=== PATIENT | female | born 1995 | race Caucasian/White ===

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

== ENCOUNTER 2018-11-15 23:41 | Outpatient (CLI) | payer BC ==
[~2018-11-15] VITALS: Ht 167.6 cm; Wt 80.5 kg
[~2018-11-15 23:41] MED LIST changes: +PRENATAL PO
--- NOTE | 2018-11-15 23:50 | NUR ---
PT ARRIVED TO UNIT AMBULATORY WITH COMPLAINTS OF CONTRACTIONS, FOB WITH PT. PT ORIENTED TO ROOM, CHANGED INTO GOWN. EFMX2, VS OBTAINED, SVE PERFORMED.
[2018-11-15] MEDS ORDERED: IRON 27 MG PO (23:59)
[2018-11-16 00:01] VITALS: BP 123/84; PULSE 75; TEMP 98
[2018-11-16 00:30] VITALS: BP 123/84; PULSE 75; TEMP 98
--- NOTE | 2018-11-16 01:50 | NUR ---
0124- PT MAY DC HOME AT THIS TIME PER DR. ZEPEDA. 0132- MONITORING DC'D AT THIS TIME. PT CHANGING INTO STREET [employer]OTHES WHILE DISCHARGE PAPERWORK PREPARED. 0150- DISCHARGE INSTRUCTIONS REVIEWED WITH PT AND FAMILY. PT INSTRUCTED SHE MAY TAKE 1000MG TYLENOL AND 50MG OF BENADRYL FOR DISCOMFORT AND SLEEP. INSTRUCTED ON WHEN TO RETURN TO THE UNIT. UNDERSTANDING VERBALIZED BY PT AND FAMILY. PT LEFT THE UNIT AMBULATORY WITH FAMILY FOR HOME.
== END 2018-11-16 01:50 | disposition home or self-care (01) ==
LOC: LDRO 23:41
DX: O62.9 Abnormality of forces of labor, unspecified (principal); Z3A.33 33 weeks gestation of pregnancy

== ENCOUNTER 2018-12-09 21:02 | Outpatient (CLI) | payer BC ==
[~2018-12-09] VITALS: Ht 165.1 cm; Wt 84.5 kg
[~2018-12-09 21:02] MED LIST changes: +IRON 27 MG PO
[2018-12-09 21:20] VITALS: TEMP 98.1
[2018-12-09 21:27] VITALS: BP 136/79; PULSE 72; TEMP 98.1
--- NOTE | 2018-12-09 21:32 | NUR ---
LABOAR CHECK. PAST 2 JHOURS INCRESING ABD PAIN
== END 2018-12-09 23:00 | disposition home or self-care (01) ==
LOC: LDRO 21:02
DX: Z34.93 Encounter for supervision of normal pregnancy, unspecified, third trimester (principal); Z3A.36 36 weeks gestation of pregnancy

== ENCOUNTER 2018-12-14 15:10 | Outpatient (CLI) | payer BC ==
[~2018-12-14] VITALS: Ht 165.1 cm; Wt 83.2 kg
--- NOTE | 2018-12-14 15:17 | NUR ---
1517-G1 [address] VELEZ AMBULATORY TO LR5 WITH COMPLAINTS OF CONTRACTIONS SINCE MONDAY. REPORTS SHE WAS SEEN IN THE OFFICE THIS WEEK FOLLOWING LABOR CHECK AND CERVIX WAS STILL 1CM THEN TOO. ASSISTED INTO GOWN AND PLACED ON EFM. REAVTIVE FHR, VSS. 1530-SVE , BOWI. UPDATED ON PLAN OF CARE. ASSESSMENT COMPLETE. 1630-SVE UNCHAGED, , UPDATED DR. DUKE. ORDERS TO DISCHARGE PATIENT HOME WITH INSTRUCTIONS. 1631-PATIENT OFF EFM. UPDATED ON DISCHARGE ORDER. 1644-REVIEWED DISCHARGE INSTRUCTIONS. PATIENT DENIES QUESTIONS. ENCOURAGED PATIENT TO CONTINUE TO DRINK PLENTY OF WATER AND TAKE TYLENOL FOR DISCOMFORTS PRN DIRECTED ON BOTTLE, ALSO SUGGESTED PATIENT TAKE WARM BATH. 1645-AMBULATORY OFF UNIT WITH SIGNIFICANT OTHER.
[2018-12-14 15:33] VITALS: BP 124/85; PULSE 69; TEMP 97.9
[2018-12-14 15:45] VITALS: BP 124/85; PULSE 69; TEMP 97.9
== END 2018-12-14 16:45 | disposition home or self-care (01) ==
LOC: LDRO 15:10 → LDR 16:30 → LDRO 16:45
DX: O62.9 Abnormality of forces of labor, unspecified (principal); O99.89 Other specified diseases and conditions complicating pregnancy, childbirth and the puerperium; F32.9 Major depressive disorder, single episode, unspecified; Z3A.37 37 weeks gestation of pregnancy
CPT/HCPCS: OP

== ENCOUNTER 2018-12-31 06:35 | Inpatient (IN) | payer BC ==
[~2018-12-31] VITALS: Ht 165.1 cm; Wt 85.9 kg
[2018-12-31] VITALS (54 sets, daily range): BP systolic 98–159; BP diastolic 57–97; PULSE 64–110; TEMP 97.5–98.1
[2018-12-31 07:58] LABS: BASO % 0.1 % (0.0-2.0); EOS % 0.4 % (0-4.0); GRAN # 4.7 (1.4-6.5); GRAN % 61.6 % (42.2-75.2); LYMPH # 2.4 (1.2-3.4); LYMPH % 30.9 % (20.0-51.0); MEAN CELL VOLUME 83 fl (80.0-100.0); MEAN CORPUSCULAR HEMOGLOBIN 27 pg (27.0-31.0); MEAN CORPUSCULAR HGB CONC 33 g/dl (33.0-37.0); MEAN PLATELET VOLUME 12.5 fl (7.4-10.4); MONO # 0.5 (0.1-0.6); MONO % 6.7 % (1.7-9.3); PLATELET COUNT 122 K/mm3 (130-400); RED BLOOD COUNT 4.39 M/mm3 (4.10-5.30); REDCELL DISTRIBUTION WIDTH-CV 14.4 % (11.5-14.5)
--- NOTE | 2018-12-31 08:00 | NUR ---
0720 PATIENT HERE FOR INDUCTION OF LABOR. EFM ON FHR 114 BABY VERY ACTIVE AND ACCELERATIONS NOTED. ASSESSMENT COMPLETED. DENIES NEEDS. IV STARTED IN LEFT HAND. DR DUKE AT BEDSIDE. FLORES MACIAS WITH AMNIOHOOK. . PATIENT TOLERATED WELL
[2018-12-31 08:01] LABS: HEMATOCRIT 36.5 % (37.0-47.0)
--- NOTE | 2018-12-31 13:14 | NUR ---
1300 PATIENT SITS UP ON EDGE OF BED FOR EPIDURAL PLACEMENT. JOSE BERGMAN CRNA AT BEDSIDE. PATIENT TOLERATE PLACEMENT WELL. DENIES NEEDS. SEE JOSE JOWL TRIMMER NOTES FOR QUESTIONS IF NEEDED.
--- NOTE | 2018-12-31 17:56 | NUR ---
1800 DR DUKE CALLED AND UPDATED NO NEW ORDERS AT THIS TIME
--- NOTE | 2018-12-31 19:34 | NUR ---
192- Dr. Donato at bedside at this time. Patient in left lateral, O2 10L, fluid bolus at this time due to prolonged deceleration. Dr. Donato- SVE 10cm at this time. Practice push initiated, patient educated on pushing, patient verbalized understanding. 193- Spontaneous delivery of male infant at this time, with successful vaccum assist- with one pop-off. 1935- Spontaneous delivery of intact placenta, pitocin rapidly infusing. 1936- First degree laceration repaired by Dr. Donato. EBL 200cc per provider. No further complications, apgars 8,9,9 per nursery nurse. Cord PH obtained and sent to lab.
[2019-01-01 01:37] VITALS: BP 132/82; PULSE 76
[2019-01-01 05:13] VITALS: BP 123/83; PULSE 65
[2019-01-01 07:15] VITALS: BP 142/89; PULSE 63; TEMP 98.4
--- NOTE | 2019-01-01 09:57 | NUR ---
INT removed,Left hand,no redness or swelling at site. Pt tolerated removal well.
--- NOTE | 2019-01-01 10:07 | NUR ---
Initial visit attempt: Family resting, Cvt Tech left card of congratulations and God's blessings for the of their son and information regarding the availability of spiritual care at [facility].
[2019-01-01 16:00] VITALS: BP 122/83; PULSE 76; TEMP 98.1
[2019-01-01 19:55] VITALS: BP 114/69; PULSE 71; TEMP 97.9
[2019-01-02] MEDS ORDERED: MOTRIN 800800 MG/TAB PO (08:31)
[2019-01-02 08:43] VITALS: BP 123/79; PULSE 91; TEMP 98.3
--- NOTE | 2019-01-02 09:56 | NUR ---
Initial visit; Parents thanked Personal Carer for offering congratulations and God's blessings for the of their son. Personal Carer thanked family for choosing our hospital.
== END 2019-01-02 11:00 | disposition home or self-care (01) | DRG 807 ==
LOC: LDR 06:35 → OB 22:45
PROVIDERS: ADMIT Obstetrics & Gynecology
PROC: 10D07Z6 Extraction of Products of Conception, Vacuum, Via Natural or Artificial Opening (ICD-10-PCS; principal; 2018-12-31)
PROC: 0UQGXZZ Repair Vagina, External Approach (ICD-10-PCS; 2018-12-31)
PROC: 10907ZC Drainage of Amniotic Fluid, Therapeutic from Products of Conception, Via Natural or Artificial Opening (ICD-10-PCS; 2018-12-31)
PROC: 3E033VJ Introduction of Other Hormone into Peripheral Vein, Percutaneous Approach (ICD-10-PCS; 2018-12-31)
DX: O99.02 Anemia complicating childbirth (principal); Z37.0 Single live birth; O99.344 Other mental disorders complicating childbirth; F32.9 Major depressive disorder, single episode, unspecified; F41.9 Anxiety disorder, unspecified; O70.0 First degree perineal laceration during delivery; O76 Abnormality in fetal heart rate and rhythm complicating labor and delivery; O69.1XX0 Labor and delivery complicated by cord around neck, with compression, not applicable or unspecified; Z3A.39 39 weeks gestation of pregnancy; Z23 Encounter for immunization
CPT/HCPCS: J2590; J7120

== ENCOUNTER 2020-02-14 19:02 | Outpatient (CLI) | payer BC ==
[~2020-02-14] VITALS: Ht 165.1 cm; Wt 84.5 kg
--- NOTE | 2020-02-14 18:40 | NUR ---
Pt arrived on unit ambulatory escorted by boyfriend and with complaints of contractions and decreased movement. Pt denies any leaking of fluid or vaginal bleeding. Pt reports contractions "every couple minutes" since 2pm and normal movement prior to contractions starting. EFM and toco monitor started. Vital signs WNL. SVE by this RN . Spoke with Dr. Marroquin. FHR tracing, ctx pattern and SVE reviewed. Orders for labor assessment received. Plan of care reviewed with pt and boyfriend. Both verbalized an understanding.
[~2020-02-14 19:02] MED LIST changes: +MOTRIN 800800 MG/TAB PO
[2020-02-14 19:05] VITALS: BP 108/77; PULSE 82; TEMP 98.4
[2020-02-14] MEDS ORDERED: PROZAC 10MG10 MG PO (19:12)
--- NOTE | 2020-02-14 19:45 | NUR ---
SVE by this RN with no change. Spoke with Dr. Marroquin for an update on pt's status. SVE and FHR tracing reviewed. Orders for discharge home received. Plan of care reviewed with pt and boyfriend. Both verbalized an understanding, agreed with the plan and state no questions or concerns at this time.
== END 2020-02-14 19:57 | disposition home or self-care (01) ==
LOC: LDRO 19:02
DX: O36.8130 Decreased fetal movements, third trimester, not applicable or unspecified (principal); Z3A.37 37 weeks gestation of pregnancy

== ENCOUNTER 2020-02-15 16:47 | Inpatient (IN) | payer MEDICAID ==
[~2020-02-15] VITALS: Ht 165.1 cm; Wt 84.5 kg
[2020-02-15] VITALS (15 sets, daily range): BP systolic 102–132; BP diastolic 62–83; PULSE 58–82; TEMP 97.8–98.3
--- NOTE | 2020-02-15 16:44 | NUR ---
pt here to unit from ER and to LDR 5 with c/o contractions every 2-3 minutes. Pt was here last evening as a labor check. Pt states ctx slowed but around 1400 this afternoon they picked back up. 37.4 weeks gestation, G2L1. Pt to [facility], explained. SVE: -2, bag of santos palpated during exam. Asessment complete. VSS. Pt states baby is active and FHR reactive. Dr Marroquin called at 1703 and updated. Will monitor for 1 hour and recheck cervix.
[~2020-02-15 16:47] MED LIST changes: +PROZAC 10MG10 MG PO
--- NOTE | 2020-02-15 18:30 | NUR ---
Pt off EFM to ambulate and use birthing ball.
--- NOTE | 2020-02-15 19:30 | NUR ---
Spoke with Dr. Marroquin for an update on pt's status. FHR tracing, ctx pattern and SVE by this RN reviewed. Orders for labor admission received. Plan of care reviewed with pt and significant other at the bedside.
--- NOTE | 2020-02-15 20:17 | NUR ---
2017- Tonja Ríos CRNA at the bedside for epidural placement. Pt sitting on the edge of the bed. SPO2 monitor started. Time out done. 2032- Single shot done per MIKE Wallace. See anesthesia records for details. 2038- Assisted pt back to supine with left wedge position. EFM and toco monitors adjusted.
[2020-02-15 20:27] LABS: BASO % 0.2 % (0.0-2.0); EOS # 0.1 (0.0-0.7); EOS % 0.6 % (0-4.0); GRAN # 7.5 (1.4-6.5); GRAN % 74.3 % (42.2-75.2); HEMATOCRIT 33.5 % (37.0-47.0); HEMOGLOBIN 11.1 g/dl (12.5-16.0); LYMPH # 1.9 (1.2-3.4); LYMPH % 18.9 % (20.0-51.0); MEAN CELL VOLUME 85 fl (80.0-100.0); MEAN CORPUSCULAR HEMOGLOBIN 28 pg (27.0-31.0); MEAN CORPUSCULAR HGB CONC 33 g/dl (33.0-37.0); MEAN PLATELET VOLUME 10.8 fl (7.4-10.4); MONO # 0.6 (0.1-0.6); MONO % 5.6 % (1.7-9.3); PLATELET COUNT 125 K/mm3 (130-400); RED BLOOD COUNT 3.96 M/mm3 (4.10-5.30); REDCELL DISTRIBUTION WIDTH-CV 13.4 % (11.5-14.5)
[2020-02-16] VITALS (18 sets, daily range): BP systolic 104–136; BP diastolic 59–84; PULSE 51–99; TEMP 97.8–98.2
--- NOTE | 2020-02-16 01:38 | NUR ---
0125- Pt reports feeling pressure. SVE by this RN /+2. 0127- Spoke with Dr. Marroquin for an update on pt's status. Dr. Marroquin in hospital and to unit for delivery. 0130- Dr. Marroquin at the bedside. Medina removed without complications. 0134- Pt set up for delivery. 0137- Pushing started. 0138- of viable female . placed on mom's abdomen. Cords clamped and cut. Care of the given to nursery RN at the bedside. 0141- of placenta. Moderate amount of lochia. Fundus firm per Dr. Marroquin. Pitocin started at 333ml/hr per order and protocol. 0143- Straight cath done per Dr. Marroquin. 0145- Methergine IM given. See EMAR for details.
--- NOTE | 2020-02-16 05:10 | NUR ---
Pt unable to ambulate to bathroom. Sofia-care done. Assisted pt to wheelchair for transfer to room 216. Oriented to room, bed and call light within reach. Plan of care reviewed with pt.
[2020-02-17] MEDS ORDERED: MOTRIN 600600 MG/TAB PO (07:09)
[2020-02-17 08:05] VITALS: BP 102/67; PULSE 70; TEMP 97.7
--- NOTE | 2020-02-17 13:15 | NUR ---
Patient given dc instructions. Denies questions.
== END 2020-02-17 13:25 | disposition home or self-care (01) | DRG 807 ==
LOC: LDRO 16:47 → LDR 16:48 → LDRO 19:34 → OB 19:35 → LDR 19:35 → OB 02-16 05:17
PROVIDERS: ADMIT Obstetrics & Gynecology
PROC: 10E0XZZ Delivery of Products of Conception, External Approach (ICD-10-PCS; principal; 2020-02-16)
DX: O80 Encounter for full-term uncomplicated delivery (principal); Z37.0 Single live birth; Z3A.37 37 weeks gestation of pregnancy
CPT/HCPCS: J2210; J2590; J2795; J7120

== ENCOUNTER 2020-02-19 12:31 | Emergency (ER) | payer MEDICAID ==
[~2020-02-19] VITALS: Ht 165.1 cm; Wt 81.8 kg
[~2020-02-19 12:31] MED LIST changes: +MOTRIN 600600 MG/TAB PO
[2020-02-19 12:41] VITALS: TEMP 98.6
[2020-02-19 12:50] LABS: BASO % 0.1 % (0.0-2.0); EOS # 0.1 (0.0-0.7); EOS % 1.2 % (0-4.0); GRAN # 4.7 (1.4-6.5); GRAN % 67.9 % (42.2-75.2); HEMOGLOBIN 10.4 g/dl (12.5-16.0); LYMPH # 1.7 (1.2-3.4); LYMPH % 25.4 % (20.0-51.0); MEAN CELL VOLUME 87 fl (80.0-100.0); MEAN CORPUSCULAR HEMOGLOBIN 28 pg (27.0-31.0); MEAN CORPUSCULAR HGB CONC 33 g/dl (33.0-37.0); MEAN PLATELET VOLUME 10.6 fl (7.4-10.4); MONO # 0.3 (0.1-0.6); PLATELET COUNT 148 K/mm3 (130-400); REDCELL DISTRIBUTION WIDTH-CV 13.6 % (11.5-14.5)
[2020-02-19 13:01] LABS: ALBUMIN 3.5 gm/dL (3.5-5.0); BILIRUBIN,TOTAL 0.9 mg/dL (0.0-1.0); CALCIUM 9.4 mg/dL (8.4-10.2); CREATININE, serum 0.77 (0.52-1.25); POTASSIUM 3.6 mmol/L (3.4-5.0)
[2020-02-19 15:11] VITALS: BP 107/76; PULSE 75
== END 2020-02-19 15:11 | disposition home or self-care (01) ==
LOC: COL.ER 12:31
PROVIDERS: Nurse Practitioner Primary Care
DX: R55 Syncope and collapse (principal); E86.0 Dehydration; F32.9 Major depressive disorder, single episode, unspecified; F41.9 Anxiety disorder, unspecified
CPT/HCPCS: J7030